=== PATIENT | female | born 1990 | race American Indian/Alaskan Native ===

== ENCOUNTER 2018-02-21 13:21 | Outpatient (CLI) | payer MEDICAID ==
[2018-02-21 13:44] VITALS: BP 112/66
== END 2018-02-21 14:25 | disposition home or self-care (01) ==
LOC: TRG 13:21
PROVIDERS: ATTEND Obstetrics & Gynecology
DX: O47.1 False labor at or after 37 completed weeks of gestation (principal); Z3A.38 38 weeks gestation of pregnancy
CPT/HCPCS: 59025

== ENCOUNTER 2018-03-04 07:59 | Inpatient (IN) | payer MEDICAID ==
[2018-03-04 08:56] LABS: Bacteria,Urine 1+ /HPF (Negative); Bilirubin,Urine NEG (Negative); Blood,Urine NEG (Negative); Color,Urine Yellow (Yellow); Mucus,Urine FEW /HPF; Protein,Urine <15 mg/dL mg/dL (Negative); Urobilinogen,Urine < 2.0 mg/dL (<2.0)
[2018-03-04 09:07] LABS: Amphetamine Screen,Urine PRESUMPTIVE NEGATIVE; Benzodiazepines Screen,Urine PRESUMPTIVE NEGATIVE; Cannabinoid Screen,Urine PRESUMPTIVE NEGATIVE; Cocaine Screen,Urine PRESUMPTIVE NEGATIVE; Methadone Screen,Urine PRESUMPTIVE NEGATIVE; Opiate Screen,Urine PRESUMPTIVE NEGATIVE
[2018-03-04] MEDS ORDERED: SUBLIMAZE IV PRN (12:32)
[2018-03-04] MEDS ORDERED: STADOL IV PRN (12:32)
[2018-03-04] MEDS ORDERED: XYLOCAINE 2% INFILTRATI ONE (12:32)
[2018-03-04] MEDS ORDERED: MINERAL OIL PO PRN (12:32)
[2018-03-04] MEDS ORDERED: BRETHINE SUB-Q PRN (12:32)
[2018-03-04] MEDS ORDERED: BRETHINE IVP PRN (12:32)
[2018-03-04] MEDS ORDERED: LACTATED RINGERS 1,000 ML IV SCH (13:00)
[2018-03-04] MEDS ORDERED: PITOCin/NS 20 UNIT/1000ML DRIP 20 UNITS/1,000 ML BAG IV SCH (13:00)
[2018-03-04 14:13] LABS: Hematocrit 32.5 % (30.3-42.9); Mean Corpuscular HGB Conc 34 % (30-34); Mean Corpuscular Hemoglobin 30 pg (28-32); Mean Corpuscular Volume 88 fl (79-97); Platelet Count 225 K/mm3 (140-440)
--- NOTE | 2018-03-04 14:14 | History and Physical Report ---
History of Present Illness Date of examination: 03/04/18 Date of admission: 03/04/18 08:00 Chief complaint: Labor History of present illness: Pt is a 27yo BF EDC 03/05/18; EGA 39 6/7 weeks presents to L&D complaining of RUC's q 3-4 mins. She received care at [facility], but wants to deliver here [facility]. records are available and GBS is negative. 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 Social history: no significant social history, single - Obstetrical History Expected Date of Delivery: 03/05/18 Actual Gestation: 39 Week(s) 6 Day(s) : 4 Medications and Allergies Allergies Allergy/AdvReac Type Severity Reaction Status Date / Time No Known Allergies Allergy Verified 02/21/18 14:08 Home Medications Medication Instructions Recorded Confirmed Last Taken Type No Known Home Medications [No 02/21/18 03/04/18 Unknown History Reported Home Medications] Active Meds: Active Medications Butorphanol Tartrate (Stadol) 2 mg IV Q2H PRN PRN Reason: Pain , Severe (7-10) Ephedrine Sulfate (Ephedrine Sulfate) 10 mg IV Q2M PRN PRN Reason: Hypotension Fentanyl (Sublimaze) 100 mcg IV Q2H PRN PRN Reason: Labor Pain Lactated Ringer's (Lactated Ringers) 1,000 mls @ 125 mls/hr IV DIRECT [place] Oxytocin/Sodium Chloride (Pitocin/Ns 20 Unit/1000ml Drip) 20 units in 1,000 mls @ 125 mls/hr IV DIRECT [place] Oxytocin/Sodium Chloride (Pitocin/Ns 30 Unit/500ml) 30 units in 500 mls @ 1 mls /hr IV TITR [place]; Protocol Mineral Oil (Mineral Oil) 30 ml PO QHS PRN PRN Reason: Constipation Terbutaline Sulfate (Brethine) 0.25 mg SUB-Q ONCE PRN PRN Reason: Hyperstimulation/Hypertonicity Terbutaline Sulfate (Brethine) 0.25 mg IVP ONCE PRN PRN Reason: Hyperstimulation/Hypertonicity Review of Systems All systems: negative - Vital Signs Vital signs: Vital Signs Pulse Pulse Ox 100 H 99 03/04/18 08:12 03/04/18 08:12 Temp Pulse Resp BP Pulse Ox 98.8 F 77 20 126/56 94 03/04/18 12:05 03/04/18 14:10 03/04/18 08:17 03/04/18 13:57 03/04/18 14:10 - Physical Exam Breasts: Positive: deferred Cardiovascular: Regular rate Lungs: Positive: Clear to auscultation Abdomen: Positive: normal appearance Genitourinary (Female): Positive: normal external genitalia Uterus: Positive: enlarged Extremities: Positive: normal - Obstetrical FHR: category 1 Uterine Contraction Monitor Mode: External Cervical Dilatation: 4 Cervical Effacement Percentage: 90 station: 0 Uterine Contraction Pattern: Regular Uterine Tone Measurement Phase: Contraction Uterine Contraction Intensity: Strong/Firm Results Result Diagrams: 03/04/18 13:19 All other labs normal. Assessment and Plan - Patient Problems (1) 39 weeks gestation of Onset Date: 03/04/18 Current Visit: Yes Status: Acute Plan to address problem: A: IUP @ 39 6/7 weeks in labor P: Admit to L&D for expectant vaginal delivery
[2018-03-04] MEDS ORDERED: NARCAN 2 MG/2 ML IV PRN (14:50)
[2018-03-04] MEDS ORDERED: fentaNYL-BUPIV 2 MCG/ML-0.125% 200 MCG/100 ML BAG EPIDURAL SCH (15:00)
[2018-03-04] MEDS: PITOCin/NS 30 UNIT/500ML 30 UNITS/500 ML BAG IV SCH ×2 (15:30→16:29)
[2018-03-04] MEDS: PITOCin/NS 20 UNIT/1000ML DRIP 20 UNITS/1,000 ML BAG IV SCH ×2 (19:50→20:35)
--- NOTE | 2018-03-04 20:08 | Procedure Note ---
OB Delivery Note - Delivery Date of Delivery: 03/04/18 Surgeon: JAYSHREE DORAN Estimated blood loss: 300cc - Vaginal Delivery presentation: vertex Delivery position: OA Intrapartum events: PROM->1hr before delivery Delivery induction: none Delivery augmentation: pitocin Delivery monitor: external FHT, external uterine Route of delivery: Delivery placenta: spontaneous Delivery cord: 3 umbilical vessels Episiotomy: none Delivery laceration: 2nd degree (perineal) Delivery repair: vicryl Anesthesia: epidural Delivery comments: Infant delivered OA and placed on Mom's chest for pdvw-ke-htey bonding and delayed cord clamping - A at 1 minute: 9 at 5 minutes: 9 Gender: Female (3191gms)
[2018-03-04] MEDS ORDERED: DULCOLAX PR PRN (20:09)
[2018-03-04] MEDS ORDERED: BENADRYL PO PRN (20:09)
[2018-03-04] MEDS ORDERED: LANSINOH TP PRN (20:09)
[2018-03-04] MEDS ORDERED: PHENERGAN PO PRN (20:09)
[2018-03-04] MEDS ORDERED: TYLENOL PO PRN (20:09)
[2018-03-04] MEDS ORDERED: ZOFRAN IV PRN (20:09)
[2018-03-04] MEDS ORDERED: NORCO 5/325 PO PRN (20:09)
[2018-03-04] MEDS ORDERED: MILK OF MAGNESIA PO PRN (20:09)
[2018-03-04] MEDS ORDERED: PHENERGAN PR PRN (20:09)
[2018-03-04] MEDS ORDERED: SODIUM CHLORIDE FLUSH SYRINGE 10 ML IV PRN (21:00)
[2018-03-04] MEDS: MOTRIN PO SCH (22:44)
[2018-03-04] MEDS: COLACE PO SCH (22:44)
[2018-03-04] MEDS: TUCKS PAD TP PRN (22:44)
[2018-03-04] MEDS: FEOSOL PO SCH (22:44)
[2018-03-05] MEDS: MOTRIN PO SCH ×5 (06:04→23:30)
[2018-03-05 07:51] LABS: Hematocrit 28.4 % (30.3-42.9); Hemoglobin 9.6 gm/dl (10.1-14.3)
[2018-03-05] MEDS: COLACE PO SCH ×2 (09:33→22:03)
[2018-03-05] MEDS: FEOSOL PO SCH ×2 (09:33→22:03)
--- NOTE | 2018-03-05 09:34 | Progress Note ---
Assessment and Plan - Patient Problems (1) 39 weeks gestation of Onset Date: 03/04/18 Current Visit: Yes Status: Resolved (2) (normal spontaneous vaginal delivery) Onset Date: 03/05/18 Current Visit: Yes Status: Resolved Plan to address problem: A: S/P - PPD #1 Doing well Asymptomatic anemia - stable P: May go home tomorrow. Subjective - Subjective Date of service: 03/05/18 Principal diagnosis: s/p - PPD #1 Interval history: Pt is feeling well without complaints. Bleeding improved. Patient reports: appetite normal, voiding normally, pain well controlled, flatus , ambulating normally, no dizzy ambulation, no nauseated [place]: doing well, nursing well, bottle feeding Objective - Vital Signs Latest vital signs: Vital Signs Temp Pulse Resp BP BP Pulse Ox 03/05/18 07:36 98.2 F 71 18 104/67 98 03/05/18 04:50 98.7 F 65 18 104/54 03/05/18 01:56 98.6 F 72 18 105/55 03/04/18 22:00 99.2 F 76 18 116/65 03/04/18 20:57 83 122/58 122/58 03/04/18 20:49 131 H 169/123 03/04/18 20:00 99.9 F H 03/04/18 19:43 129 H 97 03/04/18 19:38 95 H 98 03/04/18 19:33 109 H 99 03/04/18 19:28 102 H 97 03/04/18 19:23 102 H 97 03/04/18 19:18 80 97 03/04/18 19:13 106 H 96 03/04/18 19:08 89 96 03/04/18 19:03 85 97 03/04/18 18:58 88 97 03/04/18 18:53 89 97 03/04/18 18:48 93 H 97 03/04/18 18:43 116 H 97 03/04/18 18:38 94 H 96 03/04/18 18:33 99.0 F 105 H 18 139/73 139/73 97 03/04/18 18:28 112 H 97 03/04/18 18:23 100 H 98 03/04/18 18:18 78 73 L 03/04/18 18:17 75 L 03/04/18 18:11 71 82 L 03/04/18 18:09 101 H 100 03/04/18 18:04 107 H 100 03/04/18 18:03 80 111/58 03/04/18 17:59 78 100 03/04/18 17:54 74 100 03/04/18 17:49 82 100 03/04/18 17:48 76 106/58 03/04/18 17:45 98 F 94 H 16 94 03/04/18 17:44 93 H 98 03/04/18 17:39 90 100 03/04/18 17:34 76 100 03/04/18 17:33 78 104/59 03/04/18 17:29 78 100 03/04/18 17:24 79 99 03/04/18 17:20 79 101/54 03/04/18 17:19 77 90 03/04/18 17:14 89 100 03/04/18 17:09 85 100 03/04/18 17:07 88 03/04/18 17:04 82 99 03/04/18 17:03 70 123/61 03/04/18 16:59 79 98 03/04/18 16:54 81 98 03/04/18 16:49 79 99 03/04/18 16:48 81 124/68 03/04/18 16:44 78 98 03/04/18 16:39 82 99 03/04/18 16:34 79 122/66 99 03/04/18 16:29 87 100 03/04/18 16:24 80 100 03/04/18 16:19 71 120/64 100 03/04/18 16:14 92 H 100 03/04/18 16:09 83 100 03/04/18 16:04 86 117/66 100 03/04/18 15:59 83 100 03/04/18 15:54 68 99 03/04/18 15:49 76 100 03/04/18 15:48 70 114/60 03/04/18 15:44 74 100 03/04/18 15:39 78 100 03/04/18 15:34 99 H 99 03/04/18 15:33 74 113/57 03/04/18 15:29 86 99 03/04/18 15:24 77 99 03/04/18 15:22 98.1 F 16 03/04/18 15:19 91 H 99 03/04/18 15:17 100 H 111/57 93 03/04/18 15:15 123 H 119/56 03/04/18 15:14 104 H 98 03/04/18 15:13 91 H 118/57 03/04/18 15:11 91 H 114/55 03/04/18 15:09 81 112/53 99 03/04/18 15:07 95 H 124/57 03/04/18 15:05 77 L 03/04/18 15:04 91 H 98 03/04/18 15:02 110 H 120/59 03/04/18 14:59 62 80 L 03/04/18 14:58 53 L 82 L 03/04/18 14:57 115 H 131/66 03/04/18 14:54 100 H 131/57 03/04/18 14:53 110 H 98 03/04/18 14:10 77 94 03/04/18 14:09 76 95 03/04/18 14:04 30 L 98 03/04/18 13:57 89 126/56 03/04/18 13:55 91 03/04/18 13:50 86 03/04/18 13:49 85 03/04/18 13:43 68 89 03/04/18 13:38 84 92 03/04/18 13:35 88 98 03/04/18 13:31 84 113/62 03/04/18 13:30 79 99 03/04/18 13:26 90 03/04/18 13:25 59 L 100 03/04/18 13:20 65 100 03/04/18 13:18 91 03/04/18 13:03 51 L 86 03/04/18 12:58 78 96 03/04/18 12:53 78 99 03/04/18 12:48 71 99 03/04/18 12:43 89 99 03/04/18 12:18 86 99 03/04/18 12:05 98.8 F 03/04/18 11:47 74 99 03/04/18 11:42 76 99 03/04/18 11:37 82 99 03/04/18 11:32 85 99 03/04/18 11:27 85 99 03/04/18 11:22 90 96 03/04/18 11:20 85 91 03/04/18 11:17 89 97 03/04/18 11:12 96 H 98 03/04/18 11:07 91 H 99 03/04/18 11:02 89 99 03/04/18 10:57 82 99 03/04/18 10:52 95 H 98 03/04/18 10:47 79 99 03/04/18 10:42 84 99 03/04/18 10:37 80 99 03/04/18 10:32 89 114/65 99 Intake and Output 03/04/18 03/05/18 03/05/18 22:59 06:59 14:59 Intake Total 449.9 480 Output Total 1350 Balance 449.9 -870 Intake: IV 209.9 PITOCin/NS 20 UNIT/1000ML 187.5 DRIP 20 units In 1,000 ml @ 250 mls/hr IV DIRECT [place] Rx#:[id number] PITOCin/NS 30 UNIT/500ML 22.4 30 units In 500 ml @ 1 MILLIUNITS/MIN 1 mls/hr IV TITR [place] Rx#:[id number] Oral 240 Intake, Free Water 480 Output: Urine 1350 Void 1350 Other: Total, Intake Amount 240 Total, Output Amount 450 # Voids Indwelling Catheter 1 Estimated Blood Loss 300 - Exam Breasts: Present: deferred Cardiovascular: Present: Regular rate Abdomen: Present: normal appearance, soft Uterus: Present: normal, firm, fundal height below umbilicus Extremities: Present: normal - Labs Labs: Abnormal lab results 03/05/18 Range/Units 07:27 Hgb 9.6 L (10.1-14.3) gm/dl Hct 28.4 L (30.3-42.9) % Laboratory Tests 03/04/18 03/04/18 03/04/18 08:21 08:21 13:19 WBC 10.8 RBC 3.70 Hgb 11.0 Hct 32.5 MCV 88 MCH 30 MCHC 34 RDW 15.0 Plt Count 225 Urine Color Yellow Urine Turbidity Clear Urine pH 6.0 Ur Specific [place] 1.012 Urine Protein <15 mg/dl Urine Glucose (UA) Neg Urine Ketones Neg Urine Blood Neg Urine Nitrite Neg Urine Bilirubin Neg Urine Urobilinogen < 2.0 Ur Leukocyte Esterase Neg Urine WBC (Auto) 3.0 Urine RBC (Auto) 1.0 U Epithel Cells (Auto) < 1.0 Urine Bacteria (Auto) 1+ Urine Mucus Few Urine Opiates Screen Presumptive negative Urine Methadone Screen Presumptive negative Ur Barbiturates Screen Presumptive negative Ur Phencyclidine Scrn Presumptive negative Ur Amphetamines Screen Presumptive negative U Benzodiazepines Scrn Presumptive negative Urine Cocaine Screen Presumptive negative U Marijuana (THC) Screen Presumptive negative Drugs of Abuse Note Disclamer Rubella IgG Antibody Blood Type Antibody Screen Screen 03/04/18 03/05/18 03/05/18 13:22 07:27 07:27 WBC RBC Hgb 9.6 L Hct 28.4 L MCV MCH MCHC RDW Plt Count Urine Color Urine Turbidity Urine pH Ur Specific [place] Urine Protein Urine Glucose (UA) Urine Ketones Urine Blood Urine Nitrite Urine Bilirubin Urine Urobilinogen Ur Leukocyte Esterase Urine WBC (Auto) Urine RBC (Auto) U Epithel Cells (Auto) Urine Bacteria (Auto) Urine Mucus Urine Opiates Screen Urine Methadone Screen Ur Barbiturates Screen Ur Phencyclidine Scrn Ur Amphetamines Screen U Benzodiazepines Scrn Urine Cocaine Screen U Marijuana (THC) Screen Drugs of Abuse Note Rubella IgG Antibody Blood Type A NEGATIVE A NEGATIVE Antibody Screen Negative Negative Screen Negative 03/05/18 07:27 WBC RBC Hgb Hct MCV MCH MCHC RDW Plt Count Urine Color Urine Turbidity Urine pH Ur Specific [place] Urine Protein Urine Glucose (UA) Urine Ketones Urine Blood Urine Nitrite Urine Bilirubin Urine Urobilinogen Ur Leukocyte Esterase Urine WBC (Auto) Urine RBC (Auto) U Epithel Cells (Auto) Urine Bacteria (Auto) Urine Mucus Urine Opiates Screen Urine Methadone Screen Ur Barbiturates Screen Ur Phencyclidine Scrn Ur Amphetamines Screen U Benzodiazepines Scrn Urine Cocaine Screen U Marijuana (THC) Screen Drugs of Abuse Note Rubella IgG Antibody Immune Blood Type Antibody Screen Screen
[2018-03-05] MEDS ORDERED: PRENATAL VITAMIN PO SCH (10:00)
--- NOTE | 2018-03-05 10:09 | Discharge Summary ---
Providers - Providers Date of Admission: 03/04/18 08:00 Date of discharge: 03/06/18 Attending physician: JAYSHREE DORAN Primary care physician: JAYSHREE DORAN Hospitalization Reason for admission: active labor, IUP at term Delivery: Episiotomy: none Laceration: 2nd degree Other procedures: none complications: none Discharge diagnosis: IUP at term delivered [place] baby: female Hospital course: Unremarkable. Condition at discharge: Good Disposition: DC-01 TO HOME OR SELFCARE - Discharge Diagnoses (1) 39 weeks gestation of Status: Resolved (2) (normal spontaneous vaginal delivery) Status: Resolved Plan - Discharge Medications Prescriptions: Ferrous Sulfate [Feosol 325 MG tab] 325 mg PO BID #60 tablet Ibuprofen [Motrin 600 MG tab] 600 mg PO Q6HR #30 tablet Vit-Fe Fumar-FA [ Vitamin] 1 each PO QDAY #30 tablet - Provider Discharge Summary Activity: routine, no sex for 6 weeks, no heavy lifting 4 weeks, no strenuous exercise Diet: routine Instructions: routine Additional instructions: [] Smoking cessation referral if applicable(refer to patient education folder for contact #) [] Refer to [facility]'s [facility] Booklet Call your doctor immediately for: * Fever > 100.5 * Heavy vaginal bleeding ( >1 pad per hour) * Severe persistent headache * Shortness of breath * Reddened, hot, painful area to leg or breast * Drainage or odor from incision. * Keep incision clean and dry at all times and follow doctor's instructions regarding bathing/showering - Follow up plan Follow up: JAYSHREE DORAN MD [Primary Care Provider] - 6 Weeks
[2018-03-05] MEDS ORDERED: M-M-R II VACCINE SUB-Q ONE (20:09)
[2018-03-06] MEDS: TUCKS PAD TP PRN (01:00)
[2018-03-06 01:53] VITALS: BP 107/68
[2018-03-06] MEDS: MOTRIN PO SCH (05:34)
[2018-03-06] MEDS ORDERED: BOOSTRIX IM ONE (06:00)
[2018-03-06] MEDS: FEOSOL PO SCH (10:24)
[2018-03-06] MEDS: COLACE PO SCH (10:24)
== END 2018-03-06 20:09 | disposition home or self-care (01) | DRG 775 ==
LOC: TRG 07:59 → LD 08:00 → TRG 08:00 → OB 21:40
PROVIDERS: ADMIT Obstetrics & Gynecology; ATTEND Obstetrics & Gynecology
PROC: 10E0XZZ Delivery of Products of Conception, External Approach (ICD-10-PCS; principal; 2018-03-04)
PROC: 0KQM0ZZ Repair Perineum Muscle, Open Approach (ICD-10-PCS; 2018-03-04)
PROC: 3E0R3BZ Introduction of Anesthetic Agent into Spinal Canal, Percutaneous Approach (ICD-10-PCS; 2018-03-04)
PROC: 00HU33Z Insertion of Infusion Device into Spinal Canal, Percutaneous Approach (ICD-10-PCS; 2018-03-04)
PROC: 3E0334Z Introduction of Serum, Toxoid and Vaccine into Peripheral Vein, Percutaneous Approach (ICD-10-PCS; 2018-03-05)
PROC: 3E0234Z Introduction of Serum, Toxoid and Vaccine into Muscle, Percutaneous Approach (ICD-10-PCS; 2018-03-05)
DX: O42.02 Full-term premature rupture of membranes, onset of labor within 24 hours of rupture (principal); Z3A.39 39 weeks gestation of pregnancy; Z37.0 Single live birth; Z23 Encounter for immunization; O90.81 Anemia of the puerperium; D64.9 Anemia, unspecified; O70.1 Second degree perineal laceration during delivery
CPT/HCPCS: 36415; 80307; 81001; 85014; 85018; 85027; 85461; 86592; 86762; 86850; 86900; 86901; 99211; G0463; J0595; J2590; J2790; J7120

== ENCOUNTER 2022-01-08 08:57 | Emergency (ER) | payer MEDICAID ==
[2022-01-08 09:53] VITALS: BP 133/72
== END 2022-01-08 18:45 | disposition left against medical advice (07) ==
LOC: ED 08:57
DX: M25.571 Pain in right ankle and joints of right foot (principal); Z53.21 Procedure and treatment not carried out due to patient leaving prior to being seen by health care provider